=== PATIENT | female | born 1945 | race Caucasian/White ===

== ENCOUNTER → 2017-10-06 | Outpatient (CLI) | payer OTHER | LOC: GMAB 12:45 | PROVIDERS: ATTEND Family Medicine | DX: E04.1 Nontoxic single thyroid nodule (principal) ==

== ENCOUNTER → 2017-10-19 | Outpatient (CLI) | payer OTHER ==
--- NOTE | 2017-10-19 14:47 | MRI ---
EXAM DESCRIPTION: Cervical Spine CLINICAL HISTORY: NECK PAIN COMPARISON: None Available. TECHNIQUE: MRI of the cervical spine is performed according to our usual protocol. FINDINGS: Sagittal T2 images reveal decreased signal intensity within the intervertebral discs consistent with generalized disc desiccation. Normal T2 appearance of the cervical cord. Posterior discal abnormality is most prominent at the C5-6 level. Sagittal T1 images show benign marrow signal characteristics. Normal T1 appearance of the cervical and upper thoracic spinal cord. Normal alignment of the vertebral bodies and facets. Sagittal STIR images show mild increased signal intensity in the left C3 and C4 facet processes with increased signal intensity posterior to the joint. On sagittal T1 images, a rounded low signal intensity structure suggests prominent spur or synovial cyst protruding posteriorly. This measures 6 mm. Bone signal intensity could be stress reaction or mild subchondral osseous edema from chronic facet degenerative changes. Axial images were obtained to evaluate the disc levels. C2-3: Normal posterior disc margin with no spinal stenosis or neural foraminal narrowing. There is moderate facet degenerative spurring bilaterally with mild to moderate neural foraminal narrowing on the left. Normal appearance of the cord at this level. C3-4: Normal posterior disc margin with no spinal stenosis. Marked left-sided facet degenerative spurring is seen causing severe narrowing of the left neural foramen. Left uncovertebral joint spurring with chronic posterior leftward calcified disc herniation severely narrows the entry zone to the left neural foramen to approximately 1.5 mm. No evidence of an acute fracture or hematoma in this area. Normal appearance of the cord at this level. C4-5: Normal posterior disc margin with no spinal stenosis or neural foraminal narrowing. Moderately severe left-sided hypertrophic spurring is present. Normal appearance of the cord at this level. C5-6: Left paracentral chronic appearing broad-based calcified disc protrusion is seen which measures approximately 3 mm in AP dimension and 1 cm in mediolateral width. There is mild ventral cord contouring to the left of midline. Moderately severe narrowing of the entry zone to the left neural foramen is noted. There is uncovertebral joint spurring on the left causing mild to moderate left neural foraminal narrowing. Mild facet hypertrophic changes are present bilaterally. No significant central spinal canal stenosis is seen with the AP diameter of the spinal canal measuring 1.1 cm in mid sagittal plane. C6-7: Mild diffuse posterior disc/osteophyte complex is seen without spinal stenosis. There is mild to moderate right-sided neural foraminal narrowing related predominantly to uncovertebral joint spurring. Left neural foramen is widely patent. Facet degenerative changes are minimal. Normal appearance of the cord at this level. C7-T1: Normal posterior disc margin with no spinal stenosis or neural foraminal narrowing. Moderate facet degenerative changes are present bilaterally. Normal appearance of the cord at this level. IMPRESSION: Severe left C3-4 neural foraminal narrowing related to marked facet degenerative spurring and chronic calcified posterior lateral disc protrusion. Stress reaction around the left C3-4 facet joint. Chronic left paracentral calcified disc protrusion at C5-6 narrowing the entry zone to the left neural foramen. Electronically signed by: Adilson Townsend MD 10/19/2017 2:45 PM CDT
== END ==
LOC: MRI 12:54
PROVIDERS: ATTEND Family Medicine
DX: M54.2 Cervicalgia (principal); M50.220 Other cervical disc displacement, mid-cervical region, unspecified level

== ENCOUNTER → 2018-05-11 | Outpatient (CLI) | payer OTHER ==
--- NOTE | 2018-05-11 09:37 | RAD ---
EXAM DESCRIPTION: Knee,Left Complete CLINICAL HISTORY: KNEE PAIN COMPARISON: None. IMPRESSION: 4 standing views of the left knee show no acute fracture, focal bone destruction, or joint dislocation. Mild narrowing of the medial greater than lateral tibiofemoral compartments with mild medial joint line osteophytes are seen consistent with moderate medial and mild lateral tibiofemoral compartment osteoarthritic changes. Small posterior superior osteophyte of the patella is seen with mild narrowing of the lateral patellofemoral compartment benefits assistant with mild osteoarthritic changes. Soft tissues are unremarkable. No joint effusion is seen. Electronically signed by: Rei Boyd MD 05/11/2018 9:36 AM [facility]
--- NOTE | 2018-05-11 10:01 | RAD ---
EXAM DESCRIPTION: Pelvis CLINICAL HISTORY: 72 years Female, HIP PAIN COMPARISON: None. Impression: AP pelvis shows no fracture. No dislocation. Hips are normal. 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 SI joints normal. Degenerative changes of the discs in the lower lumbar spine Electronically signed by: Ruiz Butler MD 05/11/2018 10:00 AM [facility]
== END ==
LOC: RAD 09:10
PROVIDERS: ATTEND Orthopaedic Surgery
DX: M25.562 Pain in left knee (principal); M25.552 Pain in left hip

== ENCOUNTER → 2018-05-16 | Outpatient (CLI) | payer OTHER ==
--- NOTE | 2018-05-16 14:37 | MRI ---
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 Diffuse relatively horizontal tear throughout the body and posterior horn medial meniscus with free edge truncation and mild volume loss posterior horn. Slight attenuation/thinning of the ACL but no complete rupture. PCL is intact. Extensor tendons are intact. There is also a diffuse lateral meniscal tear with free edge truncation and horizontal cleavage partial lateral extrusion. Mild multifocal grade 2-3 chondral thinning throughout the tibiofemoral compartments. Collateral ligaments are intact. Multifocal up to grade 4 chondral fissuring in the medial patellofemoral joint. Normal patellar alignment. 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 Electronically signed by: Francisco Le MD 05/16/2018 10:06 AM [facility]
== END ==
LOC: MRI 08:56
PROVIDERS: ATTEND Orthopaedic Surgery
DX: S83.282A Other tear of lateral meniscus, current injury, left knee, initial encounter (principal); S83.242A Other tear of medial meniscus, current injury, left knee, initial encounter; M71.22 Synovial cyst of popliteal space [Baker], left knee; M25.462 Effusion, left knee

== ENCOUNTER → 2018-09-21 | Outpatient (CLI) | payer OTHER, MEDICARE | LOC: RESP 11:17 | PROVIDERS: ATTEND Orthopaedic Surgery | DX: Z01.818 Encounter for other preprocedural examination (principal) ==

== ENCOUNTER → 2020-04-29 | Outpatient (CLI) | payer MEDICARE, OTHER | LOC: LAB.O 17:31 | PROVIDERS: ATTEND Family Medicine | DX: Z20.828 Contact with and (suspected) exposure to other viral communicable diseases (principal) ==

== ENCOUNTER 2020-04-30 09:26 | Outpatient (CLI) | payer OTHER | END 2020-04-30 11:49 | disposition home or self-care (01) | LOC: INFRM 09:26 | PROVIDERS: ATTEND Family Medicine | DX: U07.1 COVID-19 (principal); Z23 Encounter for immunization ==